=== PATIENT | male | born 1985 | race Caucasian/White ===

== ENCOUNTER 2017-07-13 11:34 | Emergency (ER) | payer OTHER ==
[2017-07-13 11:58] VITALS: BP 137/78; PULSE 74; RESP 20; TEMP 98.1
[2017-07-13] MEDS ORDERED: IBUPROFEN 600 MG TAB PO STA (12:43)
--- NOTE | 2017-07-13 12:59 | XR ---
EXAMINATION TYPE: XR knee complete LT DATE OF EXAM: 07/13/2017 CLINICAL HISTORY: Popping left knee pain. TECHNIQUE: Three views of the left knee are obtained. COMPARISON: None. FINDINGS: There is no acute fracture/dislocation evident in left knee. Mild joint space loss medial and patellofemoral compartments is present. The overlying soft tissue appears unremarkable. IMPRESSION: There is no acute fracture or dislocation in the left knee.
--- NOTE | 2017-07-13 13:05 | ED ---
Extremity Problem HPI - General Chief complaint: Extremity Problem,Nontraumatic Stated complaint: left knee injury Time Seen by Provider: 07/13/17 12:27 Source: patient Mode of arrival: ambulatory Limitations: no limitations - History of Present Illness Initial comments: 32-year-old male patient presents to emergency department today for evaluation of left knee pain and swelling. Patient states he has been having problems with the knee for the last 3 months. Patient states that he was often feeling a popping sensation on the medial aspect of the left knee. Patient states that on Thursday he was walking, heard and felt a big pop, and his knee gave out on him. He states that since then the knee has been quite swollen. He states that he has had significant pain. He denies any numbness or tingling to the lower leg or foot. He is able to ambulate however it is painful. He denies any previous injury or surgery to the knee. He denies any other injuries. Denies any redness or warmth to the area. Denies any difficulty with range of motion. Patient denies any recent fever, chills, shortness breath, chest pain, abdominal pain, nausea, vomiting, diarrhea, constipation, back pain, numbness, tingling, headache, visual changes, hematuria, dysuria, urinary frequency, urinary urgency, or any other complaints. - Related Data Previous Rx's Medication Instructions Recorded Ibuprofen [Motrin] 600 mg PO Q6HR PRN #20 tab 07/13/17 Allergies Allergy/AdvReac Type Severity Reaction Status Date / Time No Known Allergies Allergy Verified 07/13/17 11:58 Review of Systems ROS Statement: Those systems with pertinent positive or pertinent negative responses have been documented in the HPI. ROS Other: All systems not noted in ROS Statement are negative. Past Medical History Past Medical History: No Reported History History of Any Multi-Drug Resistant Organisms: None Reported Past Surgical History: Tonsillectomy Past Psychological History: No Psychological Hx Reported Smoking Status: Current every day smoker Past Alcohol Use History: None Reported Past Drug Use History: None Reported General Exam Limitations: no limitations General appearance: alert, in no apparent distress, other (Well-developed not well-nourished adult male patient who is alert and oriented. Initial vital signs 98.1F, pulse 74, respirations 20, blood pressure 137/78, pulse ox 99% on room air.) Respiratory exam: Present: normal lung sounds bilaterally. Absent: respiratory distress, wheezes, rales, rhonchi, stridor Cardiovascular Exam: Present: regular rate, normal rhythm, normal heart sounds. Absent: systolic murmur, diastolic murmur, rubs, gallop, clicks Extremities exam: Present: full ROM, tenderness (Tenderness over the left knee medially.), normal capillary refill, joint swelling (Left knee swelling, more pronounced on the medial side.), other (Skin is pink, warm, and dry. No redness or warmth to the joint.). Absent: normal inspection, pedal edema, calf tenderness Left Knee exam: Present: full ROM, tenderness, swelling, pain w/ pronation/supination , pain/laxity with valgus, pain/laxity with varus, full knee extension. Absent : normal inspection, ecchymosis, deformity, crepitus, erythema, posterior draw sign Neurological exam: Present: alert, oriented X3, CN II-XII intact Psychiatric exam: Present: normal affect, normal mood Skin exam: Present: warm, dry, intact, normal color. Absent: rash Course Vital Signs 07/13/17 11:57 Temperature 98.1 F Pulse Rate 74 Respiratory 20 Rate Blood Pressure 137/78 O2 Sat by Pulse 99 Oximetry Medical Decision Making - Medical Decision Making 32-year-old male patient presented for evaluation of left knee pain and swelling. X-ray did show some loss of the joint space as well as the patellofemoral compartment. Patient did have pain with valgus and varus maneuver. States that it has given out on him. He will be placed in knee immobilizer. Given a prescription for ibuprofen. He is instructed to follow- up with orthopedics for further evaluation. He'll be given a disc of his x-ray to take with him to this appointment. He is instructed to return here immediately for any new, worsening, or concerning symptoms. Patient verbalizes understanding and agrees with this plan. - Radiology Data Radiology results: report reviewed, image reviewed 3 views of the left knee are obtained shows no acute fracture or dislocation. Mild joint space loss medial and patellofemoral compartments is present. The overlying soft tissue appears unremarkable. Impression by Dr. Lara shows no acute fracture or dislocation the left knee. Disposition Clinical Impression: Left knee pain, Knee swelling Disposition: HOME SELF-CARE Condition: Good Instructions: Swollen Knee Joint (ED), Knee Pain (ED) Additional Instructions: Rest, ice, elevate the left lower extremity. Follow up with orthopedics for further evaluation. Use ibuprofen for pain control. Wear knee immobilizer until follow-up. Return here immediately for any new, worsening, or concerning symptoms. Prescriptions: Ibuprofen [Motrin] 600 mg PO Q6HR PRN #20 tab PRN Reason: Pain Referrals: Kishor Moreno MD [Primary Care Provider] - 1-2 days René Chavez MD [STAFF PHYSICIAN] - 1-2 days Time of Disposition: 13:10
== END 2017-07-13 13:32 | disposition home or self-care (01) ==
LOC: EC 11:34
DX: M25.562 Pain in left knee (principal); M79.89 Other specified soft tissue disorders; M25.862 Other specified joint disorders, left knee; F17.200 Nicotine dependence, unspecified, uncomplicated
CPT/HCPCS: 73562; 99283; L1830

== ENCOUNTER → 2017-07-23 | Outpatient (CLI) | payer OTHER ==
--- NOTE | 2017-07-23 23:37 | MR ---
EXAMINATION TYPE: MR knee LT wo con DATE OF EXAM: 07/23/2017 COMPARISON: NONE HISTORY: Pain in left knee, Effusion TECHNIQUE: Multiplanar, multisequence imaging of the left knee is performed without IV contrast. FINDINGS: The anterior and posterior cruciate ligaments are intact. There is a moderate size knee joint effusio n. There is some truncation of the posterior horn of the medial meniscus. There is oblique increased sig nal extending to the inferior surface. The lateral meniscus is intact. There is no evidence of a frac ture. The collateral ligaments appear intact. There is small 1 cm cystic fluid collection posterior t o the distal femoral metaphysis. IMPRESSION: Knee joint effusion. Oblique and vertical tears of the posterior horn medial meniscus. No evidence of ligamentous tear. No fracture.
== END | disposition home or self-care (01) ==
LOC: RADMRIMAIN 20:35
PROVIDERS: ATTEND Orthopaedic Surgery Sports Medicine
DX: S83.242A Other tear of medial meniscus, current injury, left knee, initial encounter (principal)

== ENCOUNTER 2018-02-06 22:11 | Emergency (ER) | payer BC, OTHER ==
[2018-02-06 22:27] VITALS: BP 136/73; PULSE 81; RESP 20; TEMP 98.3
[2018-02-06] MEDS ORDERED: PROPARACAINE 0.5% OPHTH DROPS 15 ML BTL ONE (22:33)
[2018-02-06] MEDS ORDERED: PROPARACAINE 0.5% OPHTH DROPS 15 ML BTL LEFT EYE STA (22:41)
--- NOTE | 2018-02-06 22:47 | ED ---
Eye Problem HPI - General Chief complaint: Eye Problems Stated complaint: Eye FB Time Seen by Provider: 02/06/18 22:27 Source: patient, family Mode of arrival: ambulatory Limitations: no limitations - History of Present Illness Initial comments: Patient is a 32-year-old male presenting to the emergency department for left eye pain. He states that he was in the crawl space of his house when he felt something fall into his eye. Since that time, his had redness and irritation of the eye but no significant changes to his vision. He felt like there is something scratching the surface of his eye and decided to come in for further evaluation. - Related Data Previous Rx's Medication Instructions Recorded Erythromycin Ophth Oint [Romycin 1 applic LEFT EYE QID 7 Days #1 02/06/18 Ophth Oint] tube Ibuprofen [Motrin] 400 mg PO Q6HR PRN #20 tab 02/06/18 Allergies Allergy/AdvReac Type Severity Reaction Status Date / Time No Known Allergies Allergy Verified 02/06/18 22:27 Review of Systems ROS Statement: Those systems with pertinent positive or pertinent negative responses have been documented in the HPI. Constitutional: Negative for chills, fatigue and fever. HENT: Negative for congestion. Positive for left eye pain and redness Respiratory: Negative for chest tightness, shortness of breath and wheezing. Cardiovascular: Negative for chest pain and palpitations. Gastrointestinal: Negative for abdominal pain. Negative for abdominal distention , diarrhea, nausea and vomiting. Genitourinary: Negative for dysuria. Musculoskeletal: Negative for back pain, neck pain and neck stiffness. Skin: Negative for color change. Neurological: Negative for dizziness, speech difficulty, weakness and light- headedness. Psychiatric/Behavioral: Negative for agitation and confusion. The patient is not nervous/anxious. ROS Other: All systems not noted in ROS Statement are negative. Past Medical History Past Medical History: No Reported History History of Any Multi-Drug Resistant Organisms: None Reported Past Surgical History: Tonsillectomy Past Psychological History: No Psychological Hx Reported Smoking Status: Current every day smoker Past Alcohol Use History: None Reported Past Drug Use History: None Reported General Exam - General Exam Comments Initial Comments: Physical Exam Constitutional: Pt is oriented to person, place, and time. Pt appears well- developed and well-nourished. No distress. HENT: Head: Normocephalic and atraumatic. Eyes: EOM are normal. Significant erythema of the left conjunctiva with corneal abrasions noted diffusely but more so on the left lateral portion of the pupil Neck: Normal range of motion. Neck supple. Cardiovascular: Normal rate, regular rhythm, S1 normal, S2 normal and normal heart sounds. Exam reveals no gallop and no friction rub. No murmur heard. Pulmonary/Chest: Effort normal and breath sounds normal. No tachypnea and no bradypnea. No respiratory distress. No wheezes or rales noted. Abdominal: Soft. Bowel sounds are normal. Pt exhibits no shifting dullness, no distension, no pulsatile liver, no fluid wave, no abdominal bruit and no ascites. There is no tenderness. There is no rigidity, no rebound, no guarding, no tenderness at McBurney's point and negative Chavez's sign. Musculoskeletal: Normal range of motion. Neurological: Pt is alert and oriented to person, place, and time. No cranial nerve deficit. Skin: Skin is warm and dry. No rash noted. Pt is not diaphoretic. No erythema. No pallor. Psychiatric: Pt has a normal mood and affect. Pt behavior is normal. Thought content normal. Limitations: no limitations Course Vital Signs 02/06/18 22:22 Temperature 98.3 F Pulse Rate 81 Respiratory 20 Rate Blood Pressure 136/73 O2 Sat by Pulse 98 Oximetry Medical Decision Making - Medical Decision Making Left eye was stained with fluorescein and noted to have significant corneal abrasions diffusely but more so on the left lateral portion. There is no foreign bodies noted and both eyelids were everted. Vision was intact and it was recommended that the patient be followed up with ophthalmology/optometry. Additionally, patient was given a prescription for Motrin as well as erythromycin ointment. Patient was advised to return to emergency department if there are significant changes in vision and/or pain worsened. Patient and girlfriend were agreeable to plan. Disposition Clinical Impression: Corneal abrasion Disposition: HOME SELF-CARE Condition: Good Instructions: Abrasion (ED) Prescriptions: Erythromycin Ophth Oint [Romycin Ophth Oint] 1 applic LEFT EYE QID 7 Days #1 tube Ibuprofen [Motrin] 400 mg PO Q6HR PRN #20 tab PRN Reason: Pain Referrals: Yann Collins MD [Primary Care Provider] - 1-2 days Time of Disposition: 22:47
== END 2018-02-06 23:01 | disposition home or self-care (01) ==
LOC: EC 22:11
DX: S05.02XA Injury of conjunctiva and corneal abrasion without foreign body, left eye, initial encounter (principal); F17.200 Nicotine dependence, unspecified, uncomplicated
CPT/HCPCS: 99283